=== PATIENT | female | born 1985 | race Caucasian/White ===

== ENCOUNTER 2018-07-06 09:13 | Emergency (ER) | payer OTHER ==
[2018-07-06 10:12] LABS: URINE SOURCE CLEAN C
[2018-07-06 10:16] LABS: URINE BILIRUBIN NEGATIVE (NEGATIVE); URINE BLOOD NEGATIVE (NEGATIVE); URINE GLUCOSE (UA) NEGATIVE (NEGATIVE); URINE KETONE NEGATIVE (NEGATIVE); URINE LEUKOCYTE ESTERASE NEGATIVE (NEGATIVE); URINE NITRATE NEGATIVE (NEGATIVE); URINE PH 7.5 (4.6 - 8.0); URINE PROTEIN NEGATIVE (NEGATIVE); URINE UROBILINOGEN 0.2 E.U./dL (0.2 - 1.0)
[2018-07-06 10:20] LABS: URINE CLARITY CLEAR (CLEAR); URINE COLOR YELLOW; URINE MICROSCOPIC INDICATED? NO
--- NOTE | 2018-07-06 10:32 | ED Physician Chart ---
ED Chief Complaint/HPI - Patient Information Date Seen:: 07/06/18 Time Seen:: 09:14 Chief Complaint:: insect bite History of Present Illness:: insect bite. Woke up with small insect bite this morning. No other complaints patient was told by nurse Karen Wheeler from her [employer]'s office that a bug bite did not warrant an emergency room visit. She was told point blank by nurse Wheeler that AN EMERGENCY ROOM VISIT WAS NOT AT ALL CLINICALLY WARRANTED FOR A BUG BITE. Nevertheless, knowing full well that her insurance may very well not cover any of this visit (since she was told this point blank by Nurse Wheeler), she decided to come to our emergency room for a visit. Allergies:: Allergies Allergy/AdvReac Type Severity Reaction Status Date / Time acetaminophen [From Percocet] Allergy Verified 07/06/18 09:19 oxycodone [From Percocet] Allergy Verified 07/06/18 09:19 Vitals:: Vital Signs - 8 hr 07/06/18 07/06/18 09:14 10:10 Temp 97.9 F HR 72 RR 16 BP 148/104 147/103 O2 Sat % 99 Historian:: Patient Review:: Nurse's Note Reviewed ED Review of Systems - Review of Systems General/Constitutional: No fever, No chills, No weight loss, No weakness, No diaphoresis, No edema, No loss of appetite Skin: Skin lesions, No rash, No bruising, Other Head: No headache, No light-headedness Eyes: No loss of vision, No pain, No diplopia ENT: No earache, No nasal drainage, No sore throat, No tinnitus Neck: No neck pain, No swelling, No thyromegaly, No stiffness, No mass noted Cardio Vascular: No chest pain, No palpitations, No PND, No orthopnea, No edema Pulmonary: No SOB, No cough, No sputum, No wheezing GI: No nausea, No vomiting, No diarrhea, No pain, No melena, No hematochezia, No constipation, No hematemesis G/U: No dysuria, No frequency, No hematuria Musculoskeletal: No bone or joint pain, No back pain, No muscle pain Endocrine: No polyuria, No polydipsia Psychiatric: No prior psych history, No depression, No anxiety, No suicidal ideation Hematopoietic: No bruising, No lymphadenopathy Allergic/Immuno: No urticaria, No angioedema Neurological: No syncope, No focal symptoms, No weakness, No paresthesia, No headache, No seizure, No dizziness, No confusion, No vertigo ED Past Medical History - Past Medical History Obtainable: Yes Past Medical History: Other (preeclampsia with first ) Family Medical History - Family Member Mother Living Status: Still Living ED Physical Exam - Physical Examination General/Constitutional: Awake, Well-developed, well-nourished, Alert, No distress, GCS 15, Non-toxic appearing, Ambulatory Head: Atraumatic Eyes: Lids, conjuctiva normal, PERRL, EOMI Skin: Nl inspection, No rash, No skin lesions, No ecchymosis, Well hydrated, No lymphadenopathy Other Skin comments:: small, less than dime sized area of erythema on the right upper abdomen with 2 minute (less than pin size) puncture baxter present. No lymphangitis. No lymphadenopathy. No abscess. ENMT: External ears, nose nl, Nasal exam nl, Lips, teeth, gums nl Neck: Nontender, Full ROM w/o pain, No JVD, No nuchal rigidity, No bruit, No mass, No stridor Respiratory: Nl effort/Exclusion, Clear to Auscultation, No Wheeze/Rhonchi/Rales Cardio Vascular: RRR, No murmur, gallop, rubs, NL S1 S2 Other GI comments:: gravid abdomen. small, less than dime sized area of erythema on the right upper abdomen with 2 minute (less than pin size) puncture baxter present. No lymphangitis. No lymphadenopathy. No abscess. : No CVA tenderness Extremities: No tenderness or effusion, Full ROM, normal strength in all extremities, No edema, Normal digits & nails Neuro/Psych: Alert/oriented, Normal sensory exam, Normal motor strength, Judgement/insight normal, Mood normal, Normal gait, No focal deficits Misc: Normal back, No paraspinal tenderness ED Labs/Radiology/EKG Results - Lab Results Results: Laboratory Tests 07/06/18 10:05 Urine Source CLEAN C Urine Color YELLOW Urine Clarity CLEAR Urine pH 7.5 Ur Specific [place] 1.015 Urine Protein NEGATIVE Urine Glucose (UA) NEGATIVE Urine Ketones NEGATIVE Urine Blood NEGATIVE Urine Nitrate NEGATIVE Urine Bilirubin NEGATIVE Urine Urobilinogen 0.2 Ur Leukocyte Esterase NEGATIVE ED Assessment - Assessment General Assessment: phone call to Dr. Kimberli Ramírez's office at [phone]. Spoke with Karen Wheeler R.N. at 10:30 a.m. patient was told by nurse Karen Wheeler from her [employer]'s office that a bug bite did not warrant an emergency room visit. She was told point blank by nurse Wheeler that AN EMERGENCY ROOM VISIT WAS NOT AT ALL CLINICALLY WARRANTED FOR A BUG BITE. Nevertheless, knowing full well that her insurance may very well not cover any of this visit (since she was told this point blank by Nurse Wheeler), she decided to come to our emergency room for a visit I INFORMED KAREN WHEELER R.N. OF THE PATIENT'S ELEVATED BLOOD PRESSURE READINGS AND THAT SHE HAD NO PROTEIN IN THE URINE. NURSE WHEELER SPOKE TO THE DOCTOR WHO TOLD ME TO TELL THE PATIENT TO DRIVE HERSELF TO THE THIRD FLOOR OF THE [facility] OF [facility]. ED Septic Shock - . Is Septic Shock (SBP<90, OR Lactate>4 mmol\L) present?: No - <6hrs of presentation: Vital Signs: Vital Signs - 8 hr 07/06/18 07/06/18 09:14 10:10 Temp 97.9 F HR 72 RR 16 BP 148/104 147/103 O2 Sat % 99 ED Reassessment (Disposition) - Reassessment Reassessment Condition:: Unchanged - Diagnosis Diagnosis:: Bug bite with early infection right upper abdomen. with elevated blood pressure and no visual changes or protein in urine. - Aftercare/Follow up Instructions Aftercare/Follow-Up Instructions:: Refer to Discharge Instructions Medication Prescribed:: Keflex 500 mg po qid # 20 prescribed (okayed by her [employer]) - Patient Disposition Discharge/Transfer:: Acute Care (other hosp) Condition at Disposition:: Stable, Unchanged (`)
== END 2018-07-06 10:59 | disposition home or self-care (01) ==
LOC: ER 09:13
DX: O9A.219 Injury, poisoning and certain other consequences of external causes complicating pregnancy, unspecified trimester (principal); S30.861A Insect bite (nonvenomous) of abdominal wall, initial encounter; L08.9 Local infection of the skin and subcutaneous tissue, unspecified; R03.0 Elevated blood-pressure reading, without diagnosis of hypertension; Z3A.00 Weeks of gestation of pregnancy not specified; Z88.5 Allergy status to narcotic agent; W57.XXXA Bitten or stung by nonvenomous insect and other nonvenomous arthropods, initial encounter; Y93.89 Activity, other specified; Y92.89 Other specified places as the place of occurrence of the external cause; Y99.8 Other external cause status
CPT/HCPCS: 81003-TC